=== PATIENT | female | born 1975 | race Two or more races ===

== ENCOUNTER 2020-04-10 22:41 | Emergency (ER) | payer BC ==
[~2020-04-10] VITALS: Ht 167.6 cm; Wt 117.9 kg
[2020-04-10] MEDS ORDERED: XARELTO10 MG (23:04)
[2020-04-10] MEDS ORDERED: SERTRALINE20 MG/1 ML (23:04)
== END 2020-04-11 02:31 | disposition home or self-care (01) ==
LOC: ER 22:41
DX: R51.9 Headache, unspecified (principal)